=== PATIENT | male | born 1955 | race African-American/Black ===

== ENCOUNTER 2016-06-25 09:28 | Emergency (ER) | payer MEDICAID ==
[~2016-06-25] VITALS: Ht 152.4 cm; Wt 70.0 kg
[2016-06-25] MEDS ORDERED: METHYLPREDNISOLONE SOD SUCC 125 MG/2 ML VIAL IV STA (09:48)
[2016-06-25] MEDS ORDERED: IPRATROPIUM BROMIDE (0.02%) 0.5MG/2.5ML NEB HHN STA (09:48)
[2016-06-25] MEDS ORDERED: ALBUTEROL (0.083%) 2.5MG/3ML NEB HHN STA (09:48)
[2016-06-25] MEDS ORDERED: PREDNISONE 20MG TABLET PO STA (09:48)
[2016-06-25 11:30] VITALS: BP 150/98
== END 2016-06-25 11:45 | disposition home or self-care (01) ==
LOC: ER 10:32
DX: J44.1 Chronic obstructive pulmonary disease with (acute) exacerbation (principal); I10 Essential (primary) hypertension; F17.210 Nicotine dependence, cigarettes, uncomplicated; F14.10 Cocaine abuse, uncomplicated; Z71.6 Tobacco abuse counseling
CPT/HCPCS: 71010; 94640; 96374; 99284; J2930; J7512; J7611